=== PATIENT | male | born 2000 | race Caucasian/White ===

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

== ENCOUNTER 2020-09-06 18:04 | Emergency (ER) | payer OTHER ==
[~2020-09-06] VITALS: Ht 185.4 cm; Wt 70.5 kg
[~2020-09-06 18:04] MED LIST: MOBI4TAB PO
--- OUTSIDE RECORDS SUMMARY | 2020-09-06 18:09 | CCD ---
Author Author [facility] Organization [facility] Address Unknown Phone Unavailable Support Name Relationship Address Phone [facility] Next Of Kin [address] [place] [address] Unavailable DREAD RIGGS Next Of Kin [address] [place] [address] DREAD RIGGS ECON [address] [place] [address] Unavailable Re-disclosure Warning The records that you are about to access may contain information from federally-assisted alcohol or drug abuse programs. If such information is present, then the following federally mandated warning applies: This information has been disclosed to you from records protected by federal confidentiality rules (42 CFR part 2). The federal rules prohibit you from making any further disclosure of this information unless further disclosure is expressly permitted by the written consent of the person to whom it pertains or as otherwise permitted by 42 CFR part 2. A general authorization for the release of medical or other information is NOT sufficient for this purpose. The Federal rules restrict any use of the information to criminally investigate or prosecute any alcohol or drug abuse patient.The records that you are about to access may contain highly sensitive health information, the redisclosure of which is protected by Article 27-F of the [facility] Public Health law. If you continue you may have access to information: Regarding HIV / AIDS; Provided by facilities licensed or operated by the [facility] Office of Mental Health; or Provided by the [facility] Office for People With Developmental Disabilities. If such information is present, then the following [facility] mandated warning applies: This information has been disclosed to you from confidential records which are protected by state law. State law prohibits you from making any further disclosure of this information without the specific written consent of the person to whom it pertains, or as otherwise permitted by law. Any unauthorized further disclosure in violation of state law may result in a fine or intermediate sentence or both. A general authorization for the release of medical or other information is NOT sufficient authorization for further disc losure. Encounters Encounter Providers Location Date Indications Data Source(s ) [facility] [address] [address] 11/21/2019 12:00:00 AM EDT eCW1 ([facility]) Insurance Providers Payer name Policy type / Coverage type Policy ID Covered republican ID Covered republican's relationship to burnham Policy [place] Plan Information [facility] [employer] [id number] Vital Signs ID Date Data Source UNK Name Value Range Interpretation Code Description Data Source(s) Diastolic blood pressure 73 mm[Hg] 73 mm[Hg] eCW1 ([facility]) Systolic blood pressure 110 mm[Hg] 110 mm[Hg] e CW1 ([facility]) Body temperature 98.3 [degF] 98.3 [degF] eCW1 ( [facility]) Respiratory rate 18 /min 18 /min eCW1 ([facility]) Heart rate 98 /min 98 /min eCW1 ([facility]) Body mass index (BMI) [Ratio] 20.75 kg/m2 20.75 kg/m2 eCW1 ([facility]) Body height 72 [in_us] 72 [in_us] eCW1 ([facility]) Body weight Measured 153 [lb_av] 153 [lb_av] eC W1 ([facility])
--- OUTSIDE RECORDS SUMMARY | 2020-09-06 19:31 | CCD ---
Author Author [facility] Organization [facility] Address Unknown Phone Unavailable Support Name Relationship Address Phone [facility] Next Of Kin [address] [place] [address] Unavailable DREAD RIGGS Next Of Kin [address] [place] [address] DREAD RGIGS [place] [address] [place] [address] Unavailable Re-disclosure Warning The records that you [...] is protected by Article 27-F of the [facility] Public Health law. If you continue you may have access to information: Regarding HIV / AIDS; Provided by facilities licensed or operated by the [facility] Office of Mental Health; or Provided by the [facility] Office for People With Developmental Disabilities. If such information is present, then the following [facility] mandated warning applies: This information has been [...] Providers Location Date Indications Data Source(s ) [facility] [address] [address] 11/21/2019 12:00:00 AM EDT eCW1 ([facility]) Insurance Providers Payer name Policy type / Coverage type Policy ID Covered democrat ID Covered democrat's relationship to burnham Policy [place] Plan Information [facility] ACTIVE [employer]UTY [id number] Vital Signs ID Date Data Source UNK Name Value Range Interpretation Code Description Data Source(s) Diastolic blood pressure 73 mm[Hg] 73 mm[Hg] eCW1 ([facility]) Systolic blood pressure 110 mm[Hg] 110 mm[Hg] e CW1 ([facility]) Body temperature 98.3 [degF] 98.3 [degF] eCW1 ( [facility]) Respiratory rate 18 /min 18 /min eCW1 ([facility]) Heart rate 98 /min 98 /min eCW1 ([facility]) Body mass index (BMI) [Ratio] 20.75 kg/m2 20.75 kg/m2 eCW1 ([facility]) Body height 72 [in_us] 72 [in_us] eCW1 ([facility]) Body weight Measured 153 [lb_av] 153 [lb_av] eC W1 ([facility])
[2020-09-06 19:56] LABS: BASO % 0.4 % (0.0-1.0); EOS # 0.1 10^3/uL (0.0-0.5); EOS % 0.9 % (0.0-3.0); HEMATOCRIT 41.4 % (42.0-52.0); LYMPH # 2.3 10^3/uL (1.5-5.0); LYMPH % 33.5 % (24.0-44.0); MEAN CORPUSCULAR HEMOGLOBIN 32.8 pg (27.0-33.0); MEAN CORPUSCULAR HGB CONC 36.2 g/dl (32.0-36.5); MEAN CORPUSCULAR VOLUME 90.4 fl (80.0-96.0); MONO # 0.6 10^3/uL (0.0-0.8); MONO % 8.7 % (2.0-8.0); NEUTROPHILS # 3.9 10^3/uL (1.5-8.5); NEUTROPHILS % 56.4 % (36.0-66.0); PLATELET COUNT, AUTOMATED 273 10^3/uL (150-450); RED BLOOD COUNT 4.58 10^6/uL (4.30-6.10); WHITE BLOOD COUNT 6.9 10^3/uL (4.0-10.0)
[2020-09-06 20:12] VITALS: BP 121/79
[2020-09-06 20:15] LABS: ALBUMIN 4.3 GM/DL (3.2-5.2); ALT/SGPT 18 U/L (12-78); BILIRUBIN,DIRECT 0.1 MG/DL (0.0-0.2); BILIRUBIN,TOTAL 0.7 MG/DL (0.2-1.0); C REACTIVE PROTEIN QUANTITATIV < 0.30 MG/DL (0.00-0.30); LIPASE 406 U/L (73-393); TOTAL PROTEIN 6.9 GM/DL (6.4-8.2)
[2020-09-06] MEDS ORDERED: ISOVUE-370 76% 100ML VIAL As Ordered ONE (20:22)
--- NOTE | 2020-09-06 20:22 | REP ---
INDICATION: chest pain. COMPARISON: None. TECHNIQUE: Two views FINDINGS: Lung post well inflated without pleural effusion, infiltrate, atelectasis or mass. There is no pneumothorax or pneumomediastinum. Heart, mediastinal hilar contours are normal. Bony thorax shows no focal lesion. No free air under the diaphragm. IMPRESSION: No acute cardiopulmonary change. <Electronically signed by Yaya Cox > 09/06/20 2018
--- NOTE | 2020-09-06 20:43 | REPVR ---
PROCEDURE INFORMATION: Exam: CT Angiography Chest With Contrast Exam date and time: 09/06/2020 8:26 PM Age: 20 years old Clinical indication: Chest pain; Other: Post covid; Additional info: Chest pain post covid TECHNIQUE: Imaging protocol: Computed tomographic angiography of the chest with contrast. 3D rendering (Not supervised by radiologist): MIP and/or 3D reconstructed images were created by the technologist. Radiation optimization: All CT scans at this facility use at least one of these dose optimization techniques: automated exposure control; mA and/or kV adjustment per patient size (includes targeted exams where dose is matched to clinical indication); or iterative reconstruction. Contrast material: ISOVUE 370; Contrast volume: 75 ml; Contrast route: INTRAVENOUS (IV); COMPARISON: CR Chest, 2 view PA, Lat 09/06/2020 7:21 PM FINDINGS: Pulmonary arteries: Normal. No pulmonary emboli. Aorta: Unremarkable. No aortic aneurysm. No aortic dissection. Lungs: Unremarkable. No consolidation. No masses. Pleural spaces: Unremarkable. No pneumothorax. No pleural effusion. Heart: Unremarkable. No cardiomegaly. No pericardial effusion. Lymph nodes: Unremarkable. No enlarged lymph nodes. Bones/joints: Unremarkable. No acute fracture. Soft tissues: Unremarkable. IMPRESSION: No acute findings. Electronically signed by: Rivera Franklin On 09/06/2020 20:43:21 PM
[2020-09-06 20:56] VITALS: O2SAT 88
[2020-09-06 21:08] LABS: CK-MB VALUE MASS < 1.0 NG/ML (<3.6); CPK CREATINE PHOSPHOKINASE 68 U/L (39-308); MB/CK RELATIVE INDEX 1.47 (< OR =4); TROPONIN I < 0.02 NG/ML (< 0.10)
--- NOTE | 2020-09-07 20:48 | ECGEPIP ---
[facility] - ED Test Date: 2020-09-06 Pat Name: HADLEY RIGGS Department: Room: - Gender: Male [employer]: : 2000 Requested By: INDERJIT Michaels PA-C Order Number: [id number] Reading MD: Snehal Underwood Measurements Intervals [place] Rate: 82 P: 33 [place]: 126 QRS: 103 QRSD: 108 T: 38 QT: 372 QTc: 434 Interpretive Statements Normal sinus rhythm with sinus arrhythmia Incomplete right bundle branch block Right ventricular hypertrophy with repolarization abnormality No prior Electronically Signed on 09-07-2020 20:48:14 EST by Snehal Underwood
== END 2020-09-06 22:05 | disposition left against medical advice (07) ==
LOC: M ED 18:04
DX: M94.0 Chondrocostal junction syndrome [Tietze] (principal); R09.02 Hypoxemia; R07.89 Other chest pain; R06.02 Shortness of breath; U07.1 COVID-19; I45.19 Other right bundle-branch block; I42.2 Other hypertrophic cardiomyopathy
CPT/HCPCS: 71046; 71275; 80076; 82550; 82553; 83690; 84484; 85025; 85379; 86140; 93005; 99284; Q9967

== ENCOUNTER → 2021-10-02 | Outpatient (CLI) | payer OTHER | LOC: M CARPUL 09:26 | PROVIDERS: ATTEND Physician Assistant | DX: R06.00 Dyspnea, unspecified (principal) ==